=== PATIENT | male | born 1950 | race Caucasian/White ===

== ENCOUNTER 2021-08-15 14:11 | Emergency (ER) | payer OTHER ==
[~2021-08-15] VITALS: Ht 180.3 cm; Wt 70.0 kg
[2021-08-15 14:29] LABS: BASOPHILS ABSOLUTE AUTO 0.05 K/mm3 (0.00-0.23); BASOPHILS PERCENT AUTO 1 % (0-2); EOSINOPHILS PERCENT AUTO 1 % (0-6); Hemoglobin 13.1 g/dL (13.5-17.5); IMMATURE GRAN ABSOLUTE AUTO 0.03 K/mm3 (0.00-0.10); IMMATURE GRAN PERCENT AUTO 0 % (0-1); LYMPHOCYTES ABSOLUTE AUTO 2.18 K/mm3 (0.84-5.20); LYMPHOCYTES PERCENT AUTO 23 % (21-46); MONOCYTES ABSOLUTE AUTO 0.84 K/mm3 (0.16-1.47); MONOCYTES PERCENT AUTO 9 % (4-13); Mean Corpuscular HGB 30.6 pg (26.0-34.0); Mean Corpuscular HGB Conc 33.6 g/dL (31.5-36.5); Mean Corpuscular Volume 91 fL (80-100); Mean Platelet Volume 9.4 fL (9.1-12.4); NEUTROPHILS ABSOLUTE AUTO 6.16 K/mm3 (1.96-9.15); NEUTROPHILS PERCENT AUTO 66 % (41-73); Platelet Count 319 K/mm3 (150-400); RDW Coefficient Variation 13.7 % (11.7-14.2); RDW Standard Deviation 46.7 fL (35.1-46.3); Red Blood Cell Count 4.28 M/mm3 (4.30-5.90); White Blood Cell Count 9.36 K/mm3 (4.00-11.30)
[2021-08-15 14:43] LABS: International Normalized Ratio 2.7; Prothrombin Time Results 26.6 Sec (9.7-11.5)
[2021-08-15 14:54] LABS: Alanine Aminotransfer (ALT/SGP 37 U/L (12-78); Albumin, Blood 3.6 g/dL (3.4-5.0); Albumin/Globulin Ratio 1.1 (0.8-1.8); Alk Phos 212 U/L (50-136); Anion Gap 6 mmol/L (6-16); Aspartate Aminotrans (AST/SGOT 64 U/L (12-37); Bilirubin, Total 0.3 mg/dL (0.1-1.0); Blood Urea Nitrogen 17 mg/dL (8-24); Bun/Creatinine Ratio 24.5 (12.0-20.0); CO2, Blood 29 mmol/L (21-32); Calcium, Blood 8.7 mg/dL (8.5-10.1); Chloride, Blood 100 mmol/L (98-108); Ethanol (Alcohol), Blood, Med <3 mg/dL; Globulin, Blood 3.4 g/dL (2.2-4.0); Glomerular Filtration Rate >60 (60-); Glucose, Blood 146 mg/dL (70-99); Potassium, Blood 3.6 mmol/L (3.5-5.5); Sodium, Blood 135 mmol/L (136-145)
[2021-08-15 14:55] LABS: Beta HCG, Quantitative, Serum 3 mIU/mL (0-1)
[2021-08-15 14:56] LABS: Source, Urine Catheter
[2021-08-15 15:01] LABS: Appearance, Urine Clear (Clear); Bilirubin, Urine Neg (Neg); Blood, Urine Neg (Neg); Color, Urine Yellow (P-Yellow); Glucose Qualitative, Urine Neg (Neg); Ketones, Urine Neg (Neg); Leukocyte Esterase, Urine Neg (Neg); Nitrite, Urine Neg (Neg); Protein, Urine Neg (Neg); Urobilinogen, Urine NORM (Normal)
--- NOTE | 2021-08-15 15:57 | NUR ---
Upon responding to a trauma team activation, I go to [facility] and learn of the patient's condition. I then gather patient's daughter Glenda in the consult rm and ask for DR. Ingram to give a report. After they talk I bring Glenda to [facility]. I provide a calming presence and prayer while the [facility] Team prep patient for transport. I direct Glenda to have family say some "I love yous," via speaker phone, to patient as he is being onboarded. Glenda waits in parking lot as helecopter flies away. I stay with her until her comes to pick her up.
[2021-08-15] MEDS ORDERED: WARF2.5 PO (16:25)
== END 2021-08-15 15:05 | disposition short-term general hospital (02) ==
LOC: ER 14:11
PROVIDERS: Student in an Organized Health Care Education/Training Program
DX: S06.309A Unspecified focal traumatic brain injury with loss of consciousness of unspecified duration, initial encounter (principal); S01.83XA Puncture wound without foreign body of other part of head, initial encounter; S06.A1XA Traumatic brain compression with herniation, initial encounter; W34.00XA Accidental discharge from unspecified firearms or gun, initial encounter
CPT/HCPCS: 31500; 36415; 51702; 70450; 71045; 72125; 80053; 81003; 83605; 83690; 84702; 85025; 85610; 86850; 86900; 86901; 94002; 96374; 96375; 99285-25; G0480; J1953; J2704; J3010; J7168